=== PATIENT | female | born 2000 | race Caucasian/White ===

== ENCOUNTER 2019-08-08 16:08 | Emergency (ER) | payer SELFPAY ==
[~2019-08-08] VITALS: Ht 165.1 cm; Wt 63.5 kg
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
[2019-08-08] MEDS ORDERED: ACETAMINOPHEN ES 500 MG TABLET PO ONE (17:00)
[2019-08-08] MEDS ORDERED: ACETAMINOPHEN ES 500 MG TABLET ONE (17:05)
--- NOTE | 2019-08-08 17:06 | NUR ---
PT SENT TO CT
--- NOTE | 2019-08-08 17:35 | NUR ---
PT CAME BACK FROM CT. CONNECTED BACK TO THE MONITOR.
[2019-08-08 17:48] VITALS: BP 125/74
--- NOTE | 2019-08-08 17:50 | NUR ---
Patient discharged to home in stable condition. Written and verbal after care instructions given. Patient verbalizes understanding of instruction.
== END 2019-08-08 17:51 | disposition home or self-care (01) ==
LOC: ER 16:08
DX: S16.1XXA Strain of muscle, fascia and tendon at neck level, initial encounter (principal); S09.8XXA Other specified injuries of head, initial encounter; M25.511 Pain in right shoulder; M25.512 Pain in left shoulder; Z90.89 Acquired absence of other organs; V49.59XA Passenger injured in collision with other motor vehicles in traffic accident, initial encounter; Y93.89 Activity, other specified; Y92.413 State road as the place of occurrence of the external cause; Y99.8 Other external cause status
CPT/HCPCS: 70450-TC; 72125-TC; 73030-TC